=== PATIENT | female | born 1955 | race Two or more races ===

== ENCOUNTER 2024-07-18 07:20 | Day surgery (SDC) | payer MEDICARE, MEDICAID, SELFPAY ==
--- NOTE | 2024-07-17 07:54 | EKG_ITS ---
[facility] Test Date: 2024-07-17 Pat Name: FATOUMATA TAVAREZ Department: Room: - Gender: Female [employer] Team Member: BRANDY : 1955 Requested By: Chivo Tavera Order Number: [id number] Reading MD: Chivo Tavera Measurements Intervals [place] Rate: 75 P: 40 IN: 143 QRS: -24 QRSD: 83 T: 30 QT: 401 QTc: 449 Interpretive Statements SINUS RHYTHM BORDERLINE LEFT AXIS DEVIATION No previous ECG available for comparison /[id number]/[id number]
[2024-07-17 12:22] LABS: Collection Type, Urine Clean Catch
[2024-07-17 13:36] LABS: Basophils % (Auto) 0 % (0-2.5); Eosinophils # (Auto) 0.2 Thou/mm3 (0.0-0.5); Eosinophils % (Auto) 2 % (0-10); Hematocrit 40.8 % (36.0-46.0); Hemoglobin 13.5 g/dL (12.0-16.0); Immature Granulocytes % (Auto) 0 % (0-0); Immature Granulocytes Auto 0.03 Thou/mm3 (0.00-0.00); Lymphocytes % (Auto) 31 % (10-50); Mean Corpuscular HGB Conc 33.1 g/dl (31.0-37.0); Mean Corpuscular Hemoglobin 29.6 pg (25.0-35.0); Mean Corpuscular Volume 90 fL (80-100); Monocytes # (Auto) 0.6 Thou/mm3 (0.0-0.8); Monocytes % (Auto) 6 % (0-12); Neutrophils # (Auto) 5.8 Thou/mm3 (1.8-7.7); Neutrophils % (Auto) 60 % (37-80); Nucleated Red Blood Cell % 0 /100 WBC (0); Partial Thromboplastin Time 25.1 Seconds (22.0-36.0); Platelet Count 326 Thou/mm3 (140-440); RDW Standard Deviation 39.5 fL (36.4-46.3); Red Blood Count 4.56 Miln/mm3 (4.00-5.20); White Blood Count 9.7 Thou/mm3 (3.6-11.0)
[2024-07-17 13:37] LABS: Alanine Aminotransferase 22 U/L (10-49); Albumin, Serum 4.7 gm/dL (3.4-4.8); Albumin/Globulin Ratio 1.8 (1.2-2.2); Alkaline Phosphatase 76 U/L (46-116); Anion Gap 7 (7-16); Aspartate Amino Transferase 23 U/L (0-34); BUN/Creatinine Ratio 15 Ratio (12-20); Bilirubin,Total 0.7 mg/dL (0.3-1.2); Blood Urea Nitrogen 12 mg/dL (9-23); Calcium 10.5 mg/dL (8.3-10.6); Calcium (Corrected) 10.5 mg/dL (8.5-10.1); Carbon Dioxide 27.6 mMol/L (20.0-31.0); Chloride 105 mMol/L (98-107); Creatinine (Component) 0.8 mg/dL (0.6-1.3); Globulin 2.6 gm/dL (2.3-3.5); Glucose 177 mg/dL (74-106); Osmolality,Calculated 283 (275-295); Potassium 4.5 mMol/L (3.4-5.1); Sodium 140 mMol/L (136-145); Total Protein 7.3 gm/dL (5.7-8.2); eGFR > 60 See Note
[2024-07-17 13:39] LABS: Bilirubin,Urine Negative (Negative); Blood,Urine Negative (Negative); Clarity,Urine Clear (Clear/Hazy); Color,Urine Yellow (Lt Yel-Yel); Glucose, Urine Negative (Negative); Ketones,Urine 1+ (Negative); Leukocyte Esterase,Urine Negative (Negative); Nitrite,Urine Negative (Negative); Protein,Urine Negative (Neg - Trace); RBC,Urine 1 /hpf (0-3); Specific Gravity,Urine 1.015 (1.001-1.035); Squamous Epithelial Cell,Urine 1 /hpf (0-5); Urobilinogen,Urine Negative mg/dL (0.0-1.0); WBC,Urine 1 /hpf (0-5)
--- NOTE | 2024-07-17 21:24 | PD.SURHP ---
HPI Date of Admission 07/18/2024 Chief Complaint Chief Complaint: Needs screening colonoscopy. HPI This 68 years old female is diabetic and needs high risk screening colonoscopy. Risk benefits and alternatives are discussed with the patient and informed consent was obtained. Past Medical History Past Medical History CARDIAC: Negative Congestive Heart Failure RESPIRATORY: Negative Chronic Obstructive Pulmonary Disease (COPD) GENITOURINARY: Negative Renal Disease ENDOCRINE: Positive Diabetes Mellitus Type 2; Negative Diabetes Mellitus Type 1 Social History SMOKING STATUS: Never smoker Meds Home Medications and Allergies Home Medications ?Medication ?Instructions ?Recorded ?Confirmed ?Type insulin glargine 100 unit/mL 10 unit subcut QAM #0 vials 06/11/15 01/20/18 History subcutaneous solution (Lantus U-100 Insulin) metformin 850 mg tablet 850 mg PO QDAC #0 tabs 06/11/15 01/20/18 History (Glucophage) Allergies Allergy/AdvReac Type Severity Reaction Status Date / Time No Known Allergies Allergy Verified 01/19/18 23:06 Exam Constitutional Constitutional: no acute distress Routine HEENT Exam Head: Present normocephalic Eye: Present EOMI and PERRL ENT: Present mucous membranes moist Routine Neck Exam Neck: Present supple and trachea midline Routine Chest/Breast/Axilla Exam Chest wall: Absent tenderness or mass Routine Respiratory Exam Respiratory: Present chest non-tender, lungs clear, normal breath sounds and no resp distress; Absent respiratory distress Routine Cardiovascular Exam Cardiovascular: Present RRR Routine Abdominal Exam Abdominal: Present soft and normoactive bowel sounds Routine Extremities Exam Extremities: Present full ROM Routine Skin Exam Skin: Present intact, dry and warm Routine Neurological Exam Neurological: Present alert, oriented X3 and CN II-XII intact Routine Psychiatric Exam Psychiatric: Present normal affect and normal thought process Assessment & Plan Problem List (1) Encounter for screening colonoscopy: Status: Acute Plan Screening colonoscopy possible polypectomy. Informed consent was obtained. Quality Measures Quality Measures none Advance care planning discussed with:: patient
[2024-07-18] VITALS (16 sets, daily range): BP systolic 119–141; BP diastolic 65–85; PULSE 76–98; RESP 14–19; TEMP 36.7–37.1; O2SAT 95–100; BMI 21.9
[2024-07-18] MEDS: RINGERS LACTATED 1000 ML 1,000 ML 60 ML IV (08:12)
--- NOTE | 2024-07-18 10:05 | SUR.PHASEII ---
1005 patient arrived to recovery, report received from Martine ESQUIVEL
--- NOTE | 2024-07-18 10:56 | SUR.PHASEII ---
1056 Patient meets discharge criteria from recovery, awake and alert, breathing unlabored, vital signs stable, denies pain, patient ate a jello and drinking apple juice; tolerating well, denies nausea, patient able to dress herself into her clothing, patient voided prior to discharge, discharge instructions given to patient and patients daughter with the assistance of the telephone ame Ang ID#[id number], daughter signed discharge instructions. Patient given all her belongings prior to discharge, transported via wheelchair and left in a private vehicle.
== END 2024-07-18 10:56 | disposition home or self-care (01) ==
PROVIDERS: PCP Internal Medicine; Referring Provider Specialist; Visit Provider Specialist
PROC: 0DJD8ZZ Inspection of Lower Intestinal Tract, Via Natural or Artificial Opening Endoscopic (ICD-10-PCS; CPT 45378; principal; 2024-07-18 08:15)
DX: Z12.11 Encounter for screening for malignant neoplasm of colon (principal); E11.9 Type 2 diabetes mellitus without complications; K62.3 Rectal prolapse; Q43.8 Other specified congenital malformations of intestine; K64.9 Unspecified hemorrhoids
CPT/HCPCS: G0121; 36415; 80053; 81001; 85025; 85610; 85730; 93005; A4217; J1200; J2250; J3010; J7120

== ENCOUNTER → 2024-08-03 | Outpatient (CLI) | payer MEDICARE, MEDICAID, SELFPAY ==
--- NOTE | 2024-08-03 15:00 | XR_ITS ---
Examination: Breast ultrasound, unilateral, left complete Date and time of exam: August 03, 2024 1538 hours INDICATIONS: Mammogram June 07, 2024 10 mm focal asymmetry retroareolar region left breast Technique: Real-time tamez scale ultrasonographic imaging performed left breast including all 4 quadrants as well as nipple retroareolar and axillary region. Findings: No cystic or solid mass IMPRESSION: BI-RADS Category 1: Negative study
--- NOTE | 2024-08-03 15:30 | XR_ITS ---
Examination: Diagnostic digital mammography, unilateral, left Computer aided detection 3-D breast Tomosynthesis, unilateral Date and time of exam: August 03, 2024 1549 hours INDICATIONS: Mammogram June 07, 2024 10 mm focal asymmetry retroareolar region left breast Technique: Nonmagnified MLO, CC views of the left breast have been obtained, reconstructed from 3-D Tomosynthesis images. R2 computer aided detection program utilized for evaluation of suspicious masses and/or abnormal calcifications. 3-D Tomosynthesis images obtained. Findings: Scattered areas of fibroglandular density Focal asymmetry remains in the retroareolar region left breast on the spot compression MLO view Impression: BI-RADS category 3: Probably benign findings Recommend 1 additional 6 month left mammogram follow-up to document stability of focal asymmetry in the retroareolar region left breast on the spot compression MLO view
== END | disposition home or self-care (01) ==
LOC: CDIM 15:21
PROVIDERS: PCP Internal Medicine; Referring Provider Internal Medicine; Visit Provider Internal Medicine
DX: N64.89 Other specified disorders of breast (principal)
CPT/HCPCS: 76641; 77061; 77065; G0279

== ENCOUNTER → 2024-09-11 | Outpatient (CLI) | payer MEDICARE, MEDICAID, SELFPAY ==
--- NOTE | 2024-09-11 10:02 | EKG_ITS ---
[facility] Test Date: 2024-09-11 Pat Name: FATOUMATA TAVAREZ Department: Room: - Gender: Female Optometric Technician: RTSJC : 1955 Requested By: Chalo Can Order Number: [id number] Reading MD: Chalo Can Measurements Intervals [place] Rate: 64 P: 41 NV: 140 QRS: -5 QRSD: 86 T: 31 QT: 417 QTc: 432 Interpretive Statements SINUS RHYTHM Compared to ECG 07/17/2024 12:17:52 No significant changes /store/S0/[id number]/[id number]
[2024-09-11 11:46] LABS: Glucose,Fasting 192 mg/dL (74-106)
== END | disposition home or self-care (01) ==
LOC: COPL 09:12
PROVIDERS: PCP Family Medicine; Referring Provider Ophthalmology; Visit Provider Ophthalmology
DX: Z01.818 Encounter for other preprocedural examination (principal); H25.22 Age-related cataract, morgagnian type, left eye; Z01.810 Encounter for preprocedural cardiovascular examination
CPT/HCPCS: 36415; 80053; 81001; 82150; 82947; 83690; 85025; 93005

== ENCOUNTER → 2025-04-03 | Outpatient (CLI) | payer MEDICARE, MEDICAID, SELFPAY ==
--- NOTE | 2025-04-03 12:00 | XR_ITS ---
Examination: Bone densitometry Date and time of exam:April 03, 2025 1228 hours INDICATIONS: Menopause age 57 Technique: Lumbar spine and hip total bone mineralization values of an calculated. Peak reference and age match control results have been displayed. Findings: Lumbar spine total bone mineralization is0.822 gm/cm2. This is 2.0 standard deviations below peak reference. This is 0.1 standard deviations below age-matched controls. Hip total bone mineralization is 0.704 gm/cm2 This is 1.9 standard deviations below peak reference. This is 0.7 standard deviations below age-matched controls Impression: There is osteopenia based on lumbar spine measurements. There is osteopenia based on hip measurements
== END | disposition home or self-care (01) ==
LOC: CDIM 11:42
PROVIDERS: PCP Internal Medicine; Referring Provider Internal Medicine; Visit Provider Internal Medicine
DX: M85.89 Other specified disorders of bone density and structure, multiple sites (principal)
CPT/HCPCS: 77080